=== PATIENT | female | born 1995 | race American Indian/Alaskan Native ===

== ENCOUNTER 2019-01-26 22:48 | Emergency (ER) | payer SELFPAY ==
[2019-01-26 23:05] VITALS: BP 131/69
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
[2019-01-27] MEDS ORDERED: IBUPROFEN PO ONE ×2 (01:18→01:57)
== END 2019-01-27 01:58 | disposition left against medical advice (07) ==
LOC: ED 22:48
DX: M25.571 Pain in right ankle and joints of right foot (principal); Z53.21 Procedure and treatment not carried out due to patient leaving prior to being seen by health care provider